=== PATIENT | female | born 1965 ===

== ENCOUNTER 2018-03-31 20:07 | Emergency (ER) | payer SELFPAY ==
[2018-03-31 20:26] VITALS: BP 104/68; PULSE 73; RESP 16; TEMP 98.4; O2SAT 99
--- NOTE | 2018-03-31 20:58 | ED PDOC ---
Upper Extremity Pain/Injury Time Seen by Provider: 03/31/18 20:22 Chief Complaint (Nursing): Upper Extremity Problem/Injury Chief Complaint (Provider): Right Thumb Pain History Per: Patient, Family (Son) History/Exam Limitations: no limitations Onset/Duration Of Symptoms: Other (x1 month) Current Symptoms Are (Timing): Still Present Additional Complaint(s): 52-year-old female presenting for evaluation of right thumb pain at the MP joint x1 month. Patient states she's been taking over the counter NSAIDs for pain without improvement. She denies any trauma. Past Medical History Reviewed: Historical Data, Nursing Documentation, Vital Signs Vital Signs: Last Vital Signs Temp 98.4 F 03/31/18 20:21 Pulse 73 03/31/18 20:21 Resp 16 03/31/18 20:21 BP 104/68 03/31/18 20:21 Pulse Ox 99 03/31/18 20:21 - Medical History PMH: No Chronic Diseases - Surgical History Surgical History: (x1) - Family History Family History: States: Unknown Family Hx - Home Medications Home Medications: Ambulatory Orders Medication Instructions Recorded No Known Home Med 02/09/17 - Allergies Allergies/Adverse Reactions: Allergies Allergy/AdvReac Type Severity Reaction Status Date / Time No Known Allergies Allergy Verified 02/09/17 19:31 Review of Systems ROS Statement: Except As Marked, All Systems Reviewed And Found Negative Musculoskeletal: Positive for: Hand Pain (right thumb MP joint) Physical Exam - Reviewed Nursing Documentation Reviewed: Yes Vital Signs Reviewed: Yes - Physical Exam Appears: Positive for: Non-toxic, No Acute Distress Head Exam: Positive for: ATRAUMATIC Skin: Positive for: Normal Color, Warm Eye Exam: Positive for: Normal appearance Neck: Positive for: Normal Respiratory: Negative for: Respiratory Distress Extremity: Positive for: Normal ROM (right thumb), Tenderness (right thumb MP joint). Negative for: Deformity, Swelling Neurologic/Psych: Positive for: Alert - ECG O2 Sat by Pulse Oximetry: 99 (RA) Pulse Ox Interpretation: Normal Medical Decision Making Medical Decision Making: Plan: -Right Thumb X-Ray No acute fracture or dislocation seen in XR. (+) osteophyte. Scribe Attestation: Documented by Brien Curiel, acting as a scribe for Melissa Abrams PA-C. Provider Scribe Attestation: All medical record entries made by the scribe were at my direction and personally dictated by me. I have reviewed the chart and agree that the record accurately reflects my personal performance of the history, physical exam, medical decision making, and the department course for this patient. I have also personally directed, reviewed, and agree with the discharge instructions and disposition. Disposition - Clinical Impression Clinical Impression: Thumb pain - Patient ED Disposition Is Patient to be Admitted: No Counseled Patient/Family Regarding: Diagnosis, Need For Followup - Disposition Referrals: Rupesh Kinsey MD [Staff Provider] - Disposition: Routine/Home Disposition Time: 21:23 Condition: STABLE Forms: [facility] (Czech) Print Language: AUSTRIAN
--- NOTE | 2018-04-01 16:40 | RAD ---
Date of service: 03/31/2018 PROCEDURE: Right Thumb radiographs. HISTORY: thumb pain, MP - No trauma COMPARISON: None. TECHNIQUE: AP radiograph of the right hand, as well as spot oblique and lateral images of thumb were obtained. FINDINGS: RIGHT THUMB: Normal right thumb, without fracture or focal lesion. Remainder of the right hand (as seen on the AP view) grossly unremarkable. There is a smooth small ovoid ossific density distal to the tip of the ulnar styloid process. This may represent an ununited secondary ossification center. JOINTS: Normal. SOFT TISSUES: Normal. OTHER FINDINGS: None. IMPRESSION: No acute fracture.
== END 2018-03-31 21:39 | disposition home or self-care (01) ==
LOC: H.ER 20:07
DX: M79.644 Pain in right finger(s) (principal)